=== PATIENT | female | born 1975 | race Caucasian/White ===

== ENCOUNTER → 2020-11-16 13:50 | Outpatient (BNVA) | payer MEDICAID, SELFPAY | PROVIDERS: Visit Provider Counselor Professional | DX: F33.2 Major depressive disorder, recurrent severe without psychotic features (principal); F41.1 Generalized anxiety disorder | CPT/HCPCS: 90832 ==

== ENCOUNTER → 2020-11-23 14:07 | Outpatient (BNVA) | payer MEDICAID, SELFPAY | PROVIDERS: PCP Family Medicine; Visit Provider Counselor Professional | DX: F33.2 Major depressive disorder, recurrent severe without psychotic features (principal); F41.1 Generalized anxiety disorder | CPT/HCPCS: 90832 ==

== ENCOUNTER → 2020-12-20 13:04 | Outpatient (BNVA) | payer MEDICAID, SELFPAY | PROVIDERS: PCP Family Medicine; Visit Provider Counselor Professional | DX: F33.2 Major depressive disorder, recurrent severe without psychotic features (principal); F41.1 Generalized anxiety disorder | CPT/HCPCS: 90832 ==

== ENCOUNTER → 2020-12-27 15:55 | Outpatient (BNVA) | payer MEDICAID, SELFPAY | PROVIDERS: PCP Family Medicine; Visit Provider Counselor Professional | DX: F33.2 Major depressive disorder, recurrent severe without psychotic features (principal); F41.1 Generalized anxiety disorder | CPT/HCPCS: 90832 ==

== ENCOUNTER → 2021-01-03 14:46 | Outpatient (BNVA) | payer MEDICAID, SELFPAY | PROVIDERS: PCP Family Medicine; Visit Provider Counselor Professional | DX: F33.2 Major depressive disorder, recurrent severe without psychotic features (principal); F41.1 Generalized anxiety disorder | CPT/HCPCS: 90832 ==

== ENCOUNTER → 2021-01-11 15:52 | Outpatient (BNVA) | payer MEDICAID, SELFPAY | PROVIDERS: PCP Family Medicine; Visit Provider Counselor Professional | DX: F33.2 Major depressive disorder, recurrent severe without psychotic features (principal); F41.1 Generalized anxiety disorder | CPT/HCPCS: 90832 ==

== ENCOUNTER → 2021-03-01 11:19 | Outpatient (BNVA) | payer MEDICAID, SELFPAY | PROVIDERS: PCP Family Medicine; Visit Provider Psychiatry & Neurology Psychiatry | DX: F19.10 Other psychoactive substance abuse, uncomplicated (principal); F41.9 Anxiety disorder, unspecified; F32.9 Major depressive disorder, single episode, unspecified | CPT/HCPCS: 80305 ==

== ENCOUNTER → 2021-04-17 14:23 | Outpatient (BNVA) | payer MEDICAID, SELFPAY | PROVIDERS: PCP Family Medicine; Visit Provider Nurse Practitioner Family | DX: Z20.822 Contact with and (suspected) exposure to COVID-19 (principal) | CPT/HCPCS: 87635 ==

== ENCOUNTER 2021-04-26 12:28 | Inpatient (IN) | payer MEDICAID, SELFPAY ==
[2021-04-26] VITALS (7 sets, daily range): BP systolic 119–138; BP diastolic 68–82; PULSE 71–82; RESP 16–18; TEMP 36–37.1; O2SAT 95–97; BMI 42.6
--- NOTE | 2021-04-26 12:43 | W.ED.PSYCH ---
HPI - Psych General: Chief Complaint: Psychiatric Symptoms Stated Complaint: Psychological Time Seen by Provider: 04/26/21 12:43 History of Present Illness: HPI Narrative: Ms Pagan is a 45-year-old lady with significant past medical history of chronic pain, hypertension, and psychiatric disorder presents emergency department due to suicidal ideation. She reports being under a lot of stress lately, her daughter deals with mental health issues and has been hospitalized multiple times. This is resulted in DFS involvement. The patient endorses increased stress, anxiety, and now is having thoughts of suicidal ideation due to social circumstances. She has a plan to overdose on medications or drive her car off a bertha. She does have a remote history of suicidal ideation but no prior attempts. She follows outpatient but feels like her previously helping medications are no longer helping. Overall the intensity symptoms is moderate to severe. The course has been worsening. She has had a chronic cough which was mildly worsening, she saw a PCP and is on a course of antibiotics with improvement in symptoms. She otherwise denies medical complaints, other specific changes in health, exacerbating, or relieving factors. Review of Systems General: Reports: 10 or more systems reviewed and unremarkable except in HPI and below PFSH ED PFSH: Medical History Anxiety Bipolar 1 disorder Depression History of cervical cancer Hypertension Insomnia Methamphetamine abuse Psychiatric care PTSD (post-traumatic stress disorder) Surgical History History of hysterectomy Social History Smoking and tobacco status: current every day smoker Quit status (tobacco): considering quitting Second hand smoke exposure: No Alcohol intake: former Female Reproductive History: Spontaneous abortions: No Physical Exam Narrative: EXAM NARRATIVE: GENERAL/CONSTITUTIONAL - well-appearing. No acute distress. Eyes - PERRL, no conjunctival injection ENMT - Atraumatic external nose and ears. Moist mucous membranes NECK - supple. trachea midline CARDIOVASCULAR - regular rate and rhythm. RESPIRATORY -clear to auscultation bilaterally. No retractions or accessory muscle use. ABDOMEN/GI - Nontender/Nondistended. MSK - Extremities without obvious deformity or tenderness to palpation SKIN - Warm, Dry NEURO - alert and appropriately oriented. Moves all extremities equally. PSYCH -tearful and depressed affect. Course ED course: - Patient was seen and evaluated by me at bedside - Patient placed on cardiac monitors, IV access obtained - Initial evaluation notable for no acute distress, nontoxic appearance. - Labs notable for mild leukocytosis which in the absence of infectious symptoms is nonspecific . No significant metabolic abnormalities. Toxic ingestion labs negative with exception of THC - Based on ED evaluation at this point there is no obvious condition that would preclude the patient from inpatient management of psychiatric concerns. - Dr. Cote of the psychiatry service was contacted and agreed to admit the patient. Vital Signs: Vital signs: Vital Signs Temperature 97.9 F 04/29/21 06:00 Pulse Rate 63 04/29/21 06:00 Respiratory Rate 16 04/29/21 06:00 Blood Pressure 116/68 04/29/21 06:00 Pulse Oximetry 98 04/29/21 06:00 [facility] - Psych Medical Records: Attestation: I reviewed the patient's medical records. Lab Data: Attestation: I reviewed the patient's lab results. Labs: Lab Results 04/26/21 04/26/21 04/26/21 12:45 12:45 13:04 WBC 13.2 10^3/uL H 10 ^3/uL (4.0-10.0) RBC 4.13 10^6/uL 10^6 /uL (4.1-5.3) Hgb 12.6 g/dL g/dL (11.5-15.3) Hct 38.8 % % (37.0-47.0) MCV 93.9 fl fl (81-99) MCH 30.5 pg pg (28.0-34.0) MCHC 32.5 g/dL g/dL (30.0-36.0) RDW 12.9 % % (12.1-15.1) Plt Count 261 10^3/cmm 10^3 /cmm (130-400) MPV 12.2 fL H fL (7.4-10.4) Neut % (Auto) 56.6 % % Lymph % (Auto) 32.7 % % [place] % (Auto) 7.7 % % Eos % (Auto) 1.2 % % Baso % (Auto) 1.0 % % Neut # (Auto) 7.46 10^3/uL 10^3 /uL (1.8-7.7) Lymph # (Auto) 4.3 10^3/uL 10^3/ uL (0.8-4.8) [place] # (Auto) 1.0 10^3/uL H 10^ 3/uL (0.2-0.9) Eos # (Auto) 0.2 10^3/uL 10^3/ uL (0.0-0.8) Baso # (Auto) 0.1 10^3/uL 10^3/ uL (0.0-0.1) Nucleated RBC % (a uto) 0 % % Nucleated RBCs # 0.0 /100WBC /100W BC Sodium Potassium Chloride Carbon Dioxide Anion Gap BUN Creatinine GFR Calculation Glucose Calculated Osmolal ity Calcium Total Bilirubin AST ALT Alkaline Phosphata se Total Protein Albumin Globulin TSH HCG, Qual Negative (Negative) Salicylates Urine Opiates Scre en Negative ng/mL ng /mL (Negative) Acetaminophen Ur Barbiturates Sc reen Negative ng/mL ng /mL (Negative) Ur Phencyclidine S crn Negative ng/mL ng /mL (Negative) Ur Amphetamines Sc reen Negative ng/mL ng /mL (Negative) U Benzodiazepines Scrn Negative ng/mL ng /mL (Negative) Urine Cocaine Scre en Negative ng/mL ng /mL (Negative) U Marijuana (THC) Screen Positive ng/mL H ng/mL (Negative) Ethyl Alcohol 04/26/21 13:04 WBC RBC Hgb Hct MCV MCH MCHC RDW Plt Count MPV Neut % (Auto) Lymph % (Auto) [place] % (Auto) Eos % (Auto) Baso % (Auto) Neut # (Auto) Lymph # (Auto) [place] # (Auto) Eos # (Auto) Baso # (Auto) Nucleated RBC % (a uto) Nucleated RBCs # Sodium 137 mmol/L mmol/L (136-145) Potassium 3.8 mmol/L mmol/L (3.5-5.1) Chloride 99 mmol/L mmol/L (98-107) Carbon Dioxide 26 mmol/L mmol/L (22-29) Anion Gap 15.8 (5-19) BUN 11 mg/dL mg/dL (6-20) Creatinine 0.7 mg/dL mg/dL (0.5-0.9) GFR Calculation 91.3 mL/min mL/mi n (90-130) Glucose 128 mg/dL H mg/dL (65-115) Calculated Osmolal ity 285 mOsm/kg mOsm/ kg (285-295) Calcium 9.3 mg/dL mg/dL (8.5-10.5) Total Bilirubin 0.2 mg/dL mg/dL (0.15-1.2) AST 19 U/L U/L (0-32) ALT 25 U/L U/L (0-33) Alkaline Phosphata se 131 IU/L H IU/L (35-105) Total Protein 6.2 g/dL L g/dL (6.6-8.7) Albumin 3.6 g/dL g/dL (3.5-5.2) Globulin 2.6 g/dL g/dL (1.3-4.6) TSH 0.34 uIU/mL uIU/m L (0.27-4.20) HCG, Qual Salicylates < 0.3 mg/dL L mg/ dL (3-10) Urine Opiates Scre en Acetaminophen < 5.0 ug/mL L ug/ mL (10-30) Ur Barbiturates Sc reen Ur Phencyclidine S crn Ur Amphetamines Sc reen U Benzodiazepines Scrn Urine Cocaine Scre en U Marijuana (THC) Screen Ethyl Alcohol < 10 mg/dL mg/dL (0-10) EKG Data^: EKG 1: Attestation: I personally reviewed and interpreted this EKG as follows: EKG interpretation date: 04/26/21 EKG interpretation time: 12:58 Interpretation: Twelve-lead EKG shows a regular sinus 78. IL interval 168, QRS duration 110, QTc 427. normal axis. 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
--- NOTE | 2021-04-26 13:18 | ECG_ITS ---
[facility] Test Date: 2021-04-26 Pat Name: Katarzyna Pagan Department: Room: Gender: Female Location Director: : 1975 Requested By: Clovis Callahan Order Number: [id number] Kim MD: Felipe Ang M.D. Measurements Intervals [place] Rate: 78 P: 55 OR: 168 QRS: 51 QRSD: 110 T: 51 QT: 394 QTc: 450 Interpretive Statements SINUS RHYTHM NONSPECIFIC T-WAVE ABNORMALITY Compared to ECG 12/09/2015 23:22:31 No significant changes Electronically Signed On 04-26-2021 23:01:49 CDT by Felipe Ang M.D. [id number]
[2021-04-26] MEDS: LORazepam 1 mg Tablet PO (13:24)
[2021-04-26 13:32] LABS: Basophils # 0.1 10^3/uL (0.0-0.1); Eosinophils # 0.2 10^3/uL (0.0-0.8); Eosinophils % 1.2 %; Hematocrit 38.8 % (37.0-47.0); Hemoglobin 12.6 g/dL (11.5-15.3); Lymphocytes # 4.3 10^3/uL (0.8-4.8); Lymphocytes % 32.7 %; Mean Corpuscular HGB Conc 32.5 g/dL (30.0-36.0); Mean Corpuscular Hemoglobin 30.5 pg (28.0-34.0); Mean Corpuscular Volume 93.9 fl (81-99); Mean Platelet Volume 12.2 fL (7.4-10.4); Monocytes % 7.7 %; Neutrophils # 7.46 10^3/uL (1.8-7.7); Neutrophils % 56.6 %; Nucleated Red Blood Cells % 0 %; Platelet Count 261 10^3/cmm (130-400); Red Blood Count 4.13 10^6/uL (4.1-5.3); Red Cell Distribution Width 12.9 % (12.1-15.1); White Blood Count 13.2 10^3/uL (4.0-10.0)
[2021-04-26 13:50] LABS: HCG Qualitative Urine. Negative (Negative)
[2021-04-26 13:57] LABS: Amphetamines Screen Urine Negative (Negative); Barbiturates Screen Urine Negative (Negative); Benzodiazepines Screen Urine Negative (Negative); Cocaine Screen Urine Negative (Negative); Opiate Screen Urine Negative (Negative); PCP Screen Urine Negative (Negative); THC Screen Urine Positive (Negative)
[2021-04-26 14:02] LABS: Alanine Aminotransferase 25 U/L (0-33); Albumin Level 3.6 g/dL (3.5-5.2); Alkaline Phosphatase 131 IU/L (35-105); Anion Gap 15.8 (5-19); Aspartate Amino Transferase 19 U/L (0-32); Blood Urea Nitrogen 11 mg/dL (6-20); Calcium 9.3 mg/dL (8.5-10.5); Carbon Dioxide 26 mmol/L (22-29); Chloride 99 mmol/L (98-107); Globulin 2.6 g/dL (1.3-4.6); Glomerular Filtration Rate 91.3 mL/min (90-130); Glucose 128 mg/dL (65-115); Osmolality Calculated 285 mOsm/kg (285-295); Potassium 3.8 mmol/L (3.5-5.1); Sodium 137 mmol/L (136-145); Thyroid Stimulating Hormone 0.34 uIU/mL (0.27-4.20); Total Bilirubin 0.2 mg/dL (0.15-1.2); Total Protein 6.2 g/dL (6.6-8.7)
[2021-04-26 14:16] LABS: Acetaminophen < 5.0 ug/mL (10-30); Alcohol Level < 10 mg/dL (0-10); Salicylate < 0.3 mg/dL (3-10)
[2021-04-26] MEDS: nicotine 2 mg Gum BUCCAL (19:21)
[2021-04-26] MEDS: CLONazepam 0.5 mg Tablet 0.25 MG PO (22:11)
[2021-04-26] MEDS: amoxicillin-clav 875-125 mg Tablet 1 TAB PO (22:11)
[2021-04-26] MEDS: buPROPion SR (12 HR) 150 mg Tablet PO (22:11)
[2021-04-26] MEDS: gabapentin 300 mg Capsule PO (22:11)
[2021-04-26] MEDS: hyDROXYzine 25 mg Capsule 50 MG PO (22:12)
[2021-04-26] MEDS: cyclobenzaprine 10 mg Tablet PO (22:13)
[2021-04-26] MEDS: mirtazapine 15 mg Tablet PO (22:13)
[2021-04-26] MEDS: trazodone 50 mg Tablet PO (22:13)
--- NOTE | 2021-04-26 23:50 | PC.NURSE ---
Addendum entered by Vernon Rosas RN 04/27/21 02:47: patient requested meds. patient resting quietly meds were effective Original Note: 50mg Trazosone PO and 50mg Vistaril given for sleep and anxiety
--- NOTE | 2021-04-27 03:48 | PC.NURSE ---
Patient given Trazpdone 50mg PO, Visteril 50 mg PO at patient request for sleep and anxiety.10 mg Flexeril PO given for muscle tightness. meds were effective
[2021-04-27 06:00] VITALS: BP 131/70; PULSE 79; RESP 17; TEMP 36.9; O2SAT 99
[2021-04-27] MEDS: nicotine 2 mg Gum BUCCAL (07:57)
[2021-04-27] MEDS: buPROPion SR (12 HR) 150 mg Tablet PO ×2 (10:42→22:36)
[2021-04-27] MEDS: metoprolol succinate ER (24 HR) 50 mg Tablet PO (10:42)
[2021-04-27] MEDS: duloxetine 60 mg Capsule 120 MG PO (10:42)
[2021-04-27] MEDS: lamoTRIgine 25 mg Tablet PO (10:43)
[2021-04-27] MEDS: amoxicillin-clav 875-125 mg Tablet 1 TAB PO ×2 (10:43→22:35)
[2021-04-27] MEDS: lisinopril 10 mg Tablet PO (10:43)
[2021-04-27] MEDS: CLONazepam 0.5 mg Tablet 0.25 MG PO ×2 (10:43→22:36)
[2021-04-27] MEDS: gabapentin 300 mg Capsule PO ×3 (10:43→22:35)
[2021-04-27] MEDS: hydroCHLOROthiazide 25 mg Tablet 12.5 MG PO (10:44)
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
[2021-04-27 14:00] VITALS: BP 131/70; PULSE 79; RESP 17; TEMP 36.9; O2SAT 99
[2021-04-27] MEDS: OLANZapine 5 mg ODT PO (18:12)
[2021-04-27] MEDS: cyclobenzaprine 10 mg Tablet PO (18:12)
[2021-04-27 20:23] VITALS: RESP 19
[2021-04-27] MEDS: mirtazapine 15 mg Tablet PO (22:36)
[2021-04-28 06:00] VITALS: PULSE 16; TEMP 36.9; O2SAT 97
[2021-04-28] MEDS: cyclobenzaprine 10 mg Tablet PO ×2 (08:41→14:33)
[2021-04-28] MEDS: gabapentin 300 mg Capsule PO ×3 (08:41→21:14)
[2021-04-28] MEDS: buPROPion SR (12 HR) 150 mg Tablet PO ×2 (08:41→21:14)
[2021-04-28] MEDS: amoxicillin-clav 875-125 mg Tablet 1 TAB PO ×2 (08:41→21:14)
[2021-04-28] MEDS: duloxetine 60 mg Capsule 120 MG PO (08:41)
[2021-04-28] MEDS: lisinopril 10 mg Tablet PO (08:41)
[2021-04-28] MEDS: hydroCHLOROthiazide 25 mg Tablet 12.5 MG PO (08:42)
[2021-04-28] MEDS: CLONazepam 0.5 mg Tablet 0.25 MG PO ×2 (08:42→21:14)
[2021-04-28] MEDS: lamoTRIgine 25 mg Tablet PO (08:42)
[2021-04-28] MEDS: metoprolol succinate ER (24 HR) 50 mg Tablet PO (08:42)
[2021-04-28] MEDS: OLANZapine 5 mg ODT PO ×2 (09:44→17:27)
[2021-04-28] MEDS: haloperidol 5 mg Tablet PO ×2 (13:04→19:24)
[2021-04-28 14:00] VITALS: BP 117/64; PULSE 80; RESP 16; TEMP 36.9; O2SAT 95
--- NOTE | 2021-04-28 14:57 | PC.RESP ---
SMOKING CESSATION INFORMATION SENT TO PATIENT.
[2021-04-28] MEDS: propranolol 20 mg Tablet PO (15:15)
--- NOTE | 2021-04-28 15:29 | PM.NPN ---
Subjective NPU Subjective: Interval history: Patient presents today once again lobbying for an increase in her Klonopin not truly understanding why people are fighting her on this. She identifies that he gets the absence of having the Klonopin that leads to some of her addictive behavior not the other way around. We discussed the fact that that is how she sees it but unfortunately she is going to find challenges trying to get someone to change or add to her benzodiazepine load. The 0.25 mg p.o. twice daily which she is prescribed has been continued but she will need to look to her outpatient provider to make any changes of changes are to be made. Mental Status Exam MSE Comments: This is an obese, white female, in hospital scrubs, with limited grooming, and eye contact. No abnormal movements. Cooperative with exam in mild distress. Speech was slightly increased rate, normal volume. Mood described as frustrated; affect congruent. Thought process, organized. Thought content: patient denied any suicidal or homicidal ideation, there were no delusions reported or noted, patient denied any auditory or visual hallucinations. Attention, concentration, and memory appear intact but were not formally tested. She is alert and oriented times three. Insight and judgment are limited, impulse control limited, and intellectual ability limited. Vitals/I&O/Wt Last Vital Signs Temp 98.4 F 04/28/21 14:00 Pulse 80 04/28/21 14:00 Resp 16 04/28/21 14:00 BP 117/64 04/28/21 14:00 Pulse Ox 95 04/28/21 14:00 Data NPU : 04/26/21 13:04 04/26/21 13:04 A&P Additional A&P Information (1) Methamphetamine abuse: (2) Insomnia: (3) Hypertension: (4) PTSD (post-traumatic stress disorder): (5) Bipolar 1 disorder: (6) Anxiety: (7) Depression: This is a 45-year-old, white female, with a long history of mental health and addiction issues, who presents reporting that she has significant psychosocial stressors, and a desire to be back on Klonopin. RECOMMENDATION AND PLAN: 1. Continue current medication. 2. Encourage individual, group, and milieu therapy. 3. Continue q-15 minute checks for safety. 4. Encourage sober living treatment, after discharge, at the highest level of care to which the patient is willing to commit. Involuntary Hold Information 96 Hour Hold: 96 Hour Involuntary Admission: No Attestations NPU Medical Necessity Statement*: Inpatient hospitalization is medically necessary and the clinically appropriate intervention, at this time. We will monitor medications and make changes as indicated. Likely length of stay is 1-3 days. Coding Level of Care Code Acute Director Technical for Leticia Ramsey
[2021-04-28] MEDS: nicotine 2 mg Gum BUCCAL (18:01)
--- NOTE | 2021-04-28 18:20 | PC.NURSE ---
pharmacy Called preferred pharmacy and it was after business hours. Trying to confirm Klonopin script for pt. Will keep trying.
[2021-04-28] MEDS: mirtazapine 15 mg Tablet PO (21:14)
[2021-04-28 22:00] VITALS: BP 104/54; PULSE 75; RESP 16; TEMP 36.7; O2SAT 96
[2021-04-29 06:00] VITALS: BP 104/54; BP 116/68; PULSE 63; PULSE 75; RESP 16; TEMP 36.6; TEMP 36.7; O2SAT 96; O2SAT 98
[2021-04-29] MEDS: duloxetine 60 mg Capsule 120 MG PO (09:17)
[2021-04-29] MEDS: cetirizine 10 mg Tablet PO (09:18)
[2021-04-29] MEDS: hydroCHLOROthiazide 25 mg Tablet 12.5 MG PO (09:18)
[2021-04-29] MEDS: gabapentin 300 mg Capsule PO ×2 (09:18→13:48)
[2021-04-29] MEDS: metoprolol succinate ER (24 HR) 50 mg Tablet PO (09:18)
[2021-04-29] MEDS: CLONazepam 0.5 mg Tablet 0.25 MG PO (09:18)
[2021-04-29] MEDS: lamoTRIgine 25 mg Tablet PO (09:18)
[2021-04-29] MEDS: lisinopril 10 mg Tablet PO (09:18)
[2021-04-29] MEDS: buPROPion SR (12 HR) 150 mg Tablet PO (10:09)
[2021-04-29] MEDS: nicotine 2 mg Gum BUCCAL (10:48)
[2021-04-29] MEDS: hyDROXYzine 25 mg Capsule 50 MG PO (12:16)
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
== END 2021-04-29 13:58 | disposition home or self-care (01) | DRG 885 ==
LOC: ER 14:51 → NP 16:24
PROVIDERS: Admitting Provider Psychiatry & Neurology Child & Adolescent Psychiatry; Emergency Provider Emergency Medicine; PCP Family Medicine; Visit Provider Psychiatry & Neurology Child & Adolescent Psychiatry
DX: F33.2 Major depressive disorder, recurrent severe without psychotic features (principal); F41.9 Anxiety disorder, unspecified; F43.11 Post-traumatic stress disorder, acute; I10 Essential (primary) hypertension; G47.00 Insomnia, unspecified; F15.10 Other stimulant abuse, uncomplicated
CPT/HCPCS: 80053; 80306; 80307; 81025; 84443; 85025; 93005; 97150; 97165; 99285